=== PATIENT | male | born 1950 | race Caucasian/White ===

== ENCOUNTER 2020-03-27 09:17 | Outpatient (CLI) | payer MEDICARE, MEDICAID, SELFPAY ==
--- NOTE | ~2020-03-27 | XR_ITS ---
XR chest 2V DATE: 03/27/2020 09:43 INDICATION: Cough, shortness of breath TECHNIQUE: PA and lateral views COMPARISON: 11/06/2018 portable AP chest FINDINGS: There is bilateral hyperinflation. No pulmonary infiltrate or consolidation, pulmonary vas cular congestion or pleural effusion or pneumothorax. Normal heart size. Status sternotomy. There is mild dextroscoliosis and degenerative spurring of the thoracic spine. IMPRESSION: Bilateral hyperinflation No active cardiopulmonary disease Reviewed, dictated and finalized at location B.
== END 2020-03-27 09:18 | disposition home or self-care (01) ==
PROVIDERS: PCP Family Medicine; Visit Provider Nurse Practitioner Family
DX: J44.9 Chronic obstructive pulmonary disease, unspecified (principal); R05 Cough; R06.02 Shortness of breath; R91.8 Other nonspecific abnormal finding of lung field
CPT/HCPCS: 71046

== ENCOUNTER 2021-02-05 12:13 | Outpatient (CLI) | payer MEDICARE, MEDICAID, SELFPAY ==
--- NOTE | ~2021-02-05 | CT_ITS ---
EXAMINATION: CT lung screening DATE: 02/05/2021 12:30 INDICATION: Personal history of nicotine dependence, prior smoker with 20 pack year history TECHNIQUE: Computed tomography (CT) of the chest was performed without intravenous contrast. The dose -length product (DLP) was 107.04 mGy-cm. 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 COMPARISON: None FINDINGS: There is severe emphysema. There is a 3 mm nodule of the right upper lobe on image 76. Ther e is a 7 mm nodule in the superior segment of the left lower lobe on image 55. A 3 mm nodules present in the left lower lobe on image 59. The lungs are free of acute opacities. There is no pleural effus ion or pneumothorax. There are changes of coronary artery bypass grafting. No pathologically enlarged thoracic lymph nodes are identified. The heart size is normal. There is moderate thoracic spondylosi s. IMPRESSION: 1. Lung-RADS category 3: Probably benign. Followup with noncontrast low-dose chest CT in 6 months is recommended. Reviewed, dictated and finalized at location A. IMPRESSION: 1. Lung-RADS category 3: Probably benign. Followup with noncontrast low-dose est CT in 6 months is recommended.
== END 2021-02-05 12:14 | disposition home or self-care (01) ==
PROVIDERS: PCP Family Medicine; Visit Provider Nurse Practitioner Family
DX: Z12.2 Encounter for screening for malignant neoplasm of respiratory organs (principal); Z87.891 Personal history of nicotine dependence
CPT/HCPCS: 71271